=== PATIENT | male | born 1930 | race Caucasian/White ===

== ENCOUNTER 2017-11-08 11:33 | Emergency (ER) | payer MEDICARE ==
[~2017-11-08] VITALS: Ht 175.2 cm; Wt 90.7 kg
[2017-11-08 12:03] LABS: BASO # 0.1 10*3/uL (0.0-0.1); BASO % 0.5 % (0.0-1.0); EOS # 0.1 10*3/uL (0.0-0.4); EOS % 0.6 % (1.0-4.0); HEMATOCRIT 38.8 % (42.0-52.0); HEMOGLOBIN 12.7 g/dl (14.0-18.0); LYMPH # 1.9 10*3/uL (1.3-4.4); LYMPH % 12.3 % (27.0-41.0); MEAN CELL VOLUME 86.8 fl (80.0-94.0); MEAN CORPUSCULAR HGB 28.4 pg (27.0-31.0); MEAN CORPUSCULAR HGB CONC 32.7 g/dl (33.0-37.0); MEAN PLATELET VOLUME 10.4 fl (9.6-12.3); MONO # 0.9 10*3/uL (0.1-1.0); NEUT # 12.5 10*3/uL (2.3-7.9); PLATELET COUNT AUTOMATED 376 10*3/uL (130-400); RED BLOOD COUNT 4.47 10*6/uL (4.50-5.90); RED CELL DISTRI WIDTH 13.3 % (0-14.5); WHITE BLOOD COUNT 15.6 10*3/uL (4.8-10.8)
[2017-11-08] MEDS ORDERED: ZESTRIL20 MG PO (12:06)
[2017-11-08] MEDS ORDERED: AVPAK PRIMIDONE50 M1 PO (12:07)
[2017-11-08] MEDS ORDERED: NORVASC10 MG PO (12:07)
[2017-11-08] MEDS ORDERED: CARBAMAZEPINE100 M4 PO (12:10)
[2017-11-08] MEDS ORDERED: MULTIVITAMINS1 EAC5 PO (12:12)
[2017-11-08] MEDS ORDERED: ASPIRIN ADULT L81 M1 PO (12:12)
[2017-11-08] MEDS ORDERED: GARLIC1 EAC1 PO (12:13)
[2017-11-08] MEDS ORDERED: SINEMET 25-1001 EACH PO (12:21)
[2017-11-08 12:29] LABS: BUN 15 mg/dl (7-24); CHLORIDE 102 mmol/L (98-107); CREATININE 0.95 mg/dL (0.70-1.30); POTASSIUM 4.1 mmol/L (3.5-5.1); SODIUM 136 mmol/L (136-145)
[2017-11-08] MEDS ORDERED: AVPAK AZITHROM250 M1 PO (13:35)
[2017-11-08] MEDS ORDERED: TESSALON PERLE100 MG PO (13:35)
== END 2017-11-08 13:39 | disposition home or self-care (01) ==
LOC: ED 11:33
PROVIDERS: Emergency Medicine
DX: J18.9 Pneumonia, unspecified organism (principal); R01.1 Cardiac murmur, unspecified; Z90.49 Acquired absence of other specified parts of digestive tract; Z79.82 Long term (current) use of aspirin; Z79.899 Other long term (current) drug therapy; Z88.0 Allergy status to penicillin; Z88.2 Allergy status to sulfonamides